=== PATIENT | male | born 1980 | race American Indian/Alaskan Native ===

== ENCOUNTER 2017-02-13 09:01 | Emergency (ER) | payer OTHER ==
[2017-02-13 09:10] VITALS: BP 152/104
--- NOTE | 2017-02-13 09:25 | Emergency Department Report ---
ED Male HPI - General Chief complaint: Urogenital-Male Stated complaint: POSS STD Time Seen by Provider: 02/13/17 09:24 Source: patient Mode of arrival: Ambulatory Limitations: No Limitations - Related Data Home Medications Medication Instructions Recorded Confirmed Last Taken No Known Home Medications [No 02/13/17 02/13/17 Unknown Reported Home Medications] Allergies Allergy/AdvReac Type Severity Reaction Status Date / Time diphenhydramine HCl Allergy Unknown Verified 02/13/17 09:10 [From [facility]l] ED Review of Systems ROS: Stated complaint: POSS STD Other details as noted in HPI ED Past Medical Hx - Past Medical History Hx Hypertension: Yes (BORDERLINE -NO MEDS) - Surgical History Additional Surgical History: RIGHT ANKLE - Social History Smoking Status: Current Every Day Smoker Substance Use Type: Alcohol, Marijuana - Medications Home Medications: Home Medications Medication Instructions Recorded Confirmed Last Taken Type No Known Home Medications [No 02/13/17 02/13/17 Unknown History Reported Home Medications] ED Physical Exam - General Limitations: No Limitations ED Course Vital Signs 02/13/17 09:06 Temperature 98.9 F Pulse Rate 103 H Respiratory 17 Rate Blood Pressure 152/104 O2 Sat by Pulse 97 Oximetry Critical care attestation.: If time is entered above; I have spent that time in minutes in the direct care of this critically ill patient, excluding procedure time. ED Disposition Condition: Stable Referrals: PRIMARY CARE, [Primary Care Provider] - 3-5 Days
[2017-02-13 09:47] LABS: Bacteria,Urine 1+ /HPF (Negative); Bilirubin,Urine NEG (Negative); Blood,Urine SM (Negative); Ketones,Urine NEG (Negative); Leukocyte Esterase,Urine MOD (Negative); Mucus,Urine 1+ /HPF; Nitrite,Urine NEG (Negative); Protein,Urine <15 mg/dL mg/dL (Negative)
[2017-02-13] MEDS ORDERED: ZITHROMAX PO ONE (09:47)
[2017-02-13] MEDS ORDERED: ROCEPHIN IM ONE (09:48)
[2017-02-13] MEDS ORDERED: XYLOCAINE 1% MPF 5 mL INFILTRATI ONE (09:48)
--- NOTE | 2017-02-13 18:46 | Emergency Department Report ---
Entered by JACQUELINE BRADLEY, acting as scribe for FERNANDA ALFONSO NP. ED Male HPI - General Chief complaint: Urogenital-Male Stated complaint: POSS STD Time Seen by Provider: 02/13/17 09:31 Source: patient Mode of arrival: Ambulatory Limitations: No Limitations - History of Present Illness Initial comments: This is a 36 y/o male, nontoxic, well nourished in appearance, no acute signs of distress with PMHx of HTN, presents with possible chlamydia infection. Denies penile pain, discharge, lesions, dysuria, SOB, headache, blurry vision, stiff neck, back pain, polyuria, numbness, tingling, chest pain, fever and chills. Patient states girlfriend was diagnosed with chlamydia 6 days ago. No aggravating or alleviating factors. NKDA. Patient also stated that he is following up his blood pressure with his PCP Dr. Camp and stated that Dr. Camp is montoiring his b/p with diet and exercise and no medication needed as per patient. MD Complaint: other (Possible chlamydia infection ) Onset/Timin -: days(s) Location: penis Radiation: none Severity scale (0 -10): 0 Improves with: none Worsens with: none denies: discharge, dysuria, other (pain, lesions, SOB, chest pain, fever, chills ) - Related Data Sexually active: Yes Previous Rx's Medication Instructions Recorded Last Taken Type Sulfamethoxazole/Trimethoprim 1 each PO BID #20 tablet 02/13/17 Unknown Rx [Bactrim DS TAB] Allergies Allergy/AdvReac Type Severity Reaction Status Date / Time diphenhydramine HCl Allergy Unknown Verified 02/13/17 09:10 [From Benadryl] ED Review of Systems Comment: All other systems reviewed and negative Constitutional: denies: chills, fever Eyes: denies: eye pain, eye discharge, vision change ENT: denies: ear pain, throat pain Respiratory: denies: shortness of breath Cardiovascular: denies: chest pain Endocrine: no symptoms reported Gastrointestinal: denies: abdominal pain, nausea, diarrhea Genitourinary: other (Possible chlamydia infection). denies: dysuria, discharge , testicular pain Musculoskeletal: denies: back pain, joint swelling, arthralgia Skin: denies: lesions Neurological: denies: headache, weakness, paresthesias Psychiatric: denies: anxiety, depression Hematological/Lymphatic: denies: easy bleeding, easy bruising ED Past Medical Hx - Past Medical History Hx Hypertension: Yes (BORDERLINE -NO MEDS) - Surgical History Additional Surgical History: RIGHT ANKLE - Social History Smoking Status: Current Every Day Smoker Substance Use Type: Alcohol, Marijuana - Medications Home Medications: Home Medications Medication Instructions Recorded Confirmed Last Taken Type Sulfamethoxazole/Trimethoprim 1 each PO BID #20 tablet 02/13/17 Unknown Rx [Bactrim DS TAB] ED Physical Exam - General Limitations: No Limitations General appearance: alert, in no apparent distress - Head Head exam: Present: atraumatic, normocephalic, normal inspection - Eye Eye exam: Present: normal appearance, PERRL, EOMI. Absent: scleral icterus, conjunctival injection, nystagmus, periorbital swelling, periorbital tenderness Pupils: Present: normal accommodation - ENT ENT exam: Present: normal exam, normal orophraynx, mucous membranes moist, TM's normal bilaterally, normal external ear exam - Neck Neck exam: Present: normal inspection, full ROM. Absent: tenderness, meningismus, lymphadenopathy, thyromegaly - Respiratory Respiratory exam: Present: normal lung sounds bilaterally. Absent: respiratory distress, wheezes, rales, rhonchi, stridor, chest wall tenderness, accessory muscle use - Cardiovascular Cardiovascular Exam: Present: regular rate, normal rhythm, normal heart sounds. Absent: bradycardia, tachycardia, irregular rhythm, systolic murmur, diastolic murmur, rubs, gallop - GI/Abdominal GI/Abdominal exam: Present: soft, normal bowel sounds. Absent: distended, tenderness, guarding, rebound, rigid, diminished bowel sounds - Rectal Rectal exam: Present: deferred - exam: Present: normal inspection. Absent: testicular tenderness, urethral discharge, scrotal swelling, vertical testicular lie, circumcision External exam: Present: normal external exam. Absent: erythema, swelling, lesions, lacerations, ecchymosis, bleeding - Extremities Exam Extremities exam: Present: normal inspection, full ROM, normal capillary refill. Absent: tenderness, pedal edema, joint swelling, calf tenderness - Back Exam Back exam: Present: normal inspection, full ROM. Absent: tenderness, CVA tenderness (R), CVA tenderness (L), muscle spasm, paraspinal tenderness, vertebral tenderness, rash noted - Neurological Exam Neurological exam: Present: alert, oriented X3, CN II-XII intact, normal gait - Psychiatric Psychiatric exam: Present: normal affect, normal mood - Skin Skin exam: Present: warm, dry, intact, normal color. Absent: rash ED Course Vital Signs 02/13/17 09:06 Temperature 98.9 F Pulse Rate 103 H Respiratory 17 Rate Blood Pressure 152/104 O2 Sat by Pulse 97 Oximetry ED Medical Decision Making - Medical Decision Making Ed course: This is a 36-year-old male that presents with UTI and possible STD exposure 1- after my physical exam, UA and Chlamydia/gonorrhea has been obtained. 2- UA indicates a elevated WBCs with small amount of blood as well. Patient will be treated for UTI. 3- patient was instructed to follow up with his primary care doctor in 24 hours for his blood pressure and symptoms such as headache, dizziness, chest pain, short of breath, numbness, tingling, fever or chills report back to emergency room as was possible. 4- patient received Bactrim for 10 days at discharge. 5- at time time of discharge, the patient does not seem toxic or ill in appearance. No acute signs of distress noted. Patient agrees to discharge treatment plan of care. No further questions noted by the patient. 6- patient also received Rocephin and azithromycin in the ED. ED Disposition Clinical Impression: Possible exposure to STD UTI (urinary tract infection) Qualifiers: Urinary tract infection type: site unspecified Hematuria presence: with hematuria Qualified Code(s): N39.0 - Urinary tract infection, site not specified ; R31.9 - Hematuria, unspecified Disposition: -01 TO HOME OR SELFCARE Is pt being admited?: No Does the pt Need Aspirin: No Condition: Stable Instructions: Urinary Tract Infection in Men (ED), Safe Sex (ED), Sulfamethoxazole/Trimethoprim (By mouth) Additional Instructions: Follow up with your primary care doctor in 24 hours for his blood pressure and symptoms such as headache, dizziness, chest pain, short of breath, numbness, tingling, fever or chills report back to emergency room as was possible. Take full course of Bactrim as prescribed for 10 days. Return to [facility] in 3-7 days to obtain your gonorrhea/chlamydia results Prescriptions: Sulfamethoxazole/Trimethoprim [Bactrim DS TAB] 1 each PO BID #20 tablet Referrals: [facility] [Outside] - 3-5 Days [facility] [Outside] - 3-5 Days PRIMARY CARE,MD [Primary Care Provider] - 24 Hours DREW CRAIN MD [Staff Physician] - 24 Hours Forms: Work/School Release Form(ED) This documentation as recorded by the KIRK bender ELIZABETH,accurately reflects the service I personally performed and the decisions made by me,FERNANDA ALFONSO, EC TEACHER.
== END 2017-02-13 11:03 | disposition home or self-care (01) ==
LOC: ED 09:01
DX: N39.0 Urinary tract infection, site not specified (principal); I10 Essential (primary) hypertension; F17.200 Nicotine dependence, unspecified, uncomplicated; F12.10 Cannabis abuse, uncomplicated
CPT/HCPCS: 81001; 96372; 99283; J0696